=== PATIENT | female | born 1940 | race Caucasian/White ===

== ENCOUNTER 2024-03-05 14:40 | Inpatient (IN) | payer OTHER ==
[~2024-03-05] VITALS: Ht 162.6 cm; Wt 74.0 kg
[2024-03-05 14:54] VITALS: BP_SYST 91; PULSE 84; RESP 20; TEMP 98.1; O2SAT 98
[2024-03-05 16:01] LABS: BASOPHILS % (AUTO) 0.4 % (0.0-2.0); EOSINOPHILS % (AUTO) 0.3 % (0.0-4.0); HEMATOCRIT 42.4 % (36-48); HEMOGLOBIN 14.3 g/dL (12.0-16.0); LYMPHOCYTES # (AUTO) 0.8 K/uL (1.0-5.5); LYMPHOCYTES % (AUTO) 7.8 % (20.5-51.5); MEAN CORPUSCULAR HEMOGLOBIN 28 pg (27-31); MEAN CORPUSCULAR HGB CONC 34 % (32-36); MEAN CORPUSCULAR VOLUME 85 fL (79.0-98.0); MONOCYTES # (AUTO) 0.4 K/uL (0.0-1.0); MONOCYTES % (AUTO) 4.6 % (1.7-9.3); NEUTROPHILS # (AUTO) 8.4 K/uL (1.8-7.7); NEUTROPHILS % (AUTO) 86.9 % (40.0-70.0); PLATELET COUNT (AUTO) 295 K/uL (130-430); RED BLOOD CELL COUNT(AUTO) 5.02 MIL/uL (4.2-6.2); RED CELL DISTRIBUTION WIDTH 20.1 % (9.0-15.0); WHITE BLOOD COUNT (AUTO) 9.7 K/uL (4.8-10.8)
[2024-03-05 16:14] LABS: INR 1.1 (0.8-1.2); PROTHROMBIN TIME 11.7 SECS (9.5-12.5)
[2024-03-05 16:27] LABS: ANION GAP 11 (5-15); CALCIUM 8.2 mg/dL (8.4-11.0); CARBON DIOXIDE 24 mmol/L (23-29); CHLORIDE 94 mmol/L (98-107); CREATININE 1.15 mg/dL (0.55-1.30); GLUCOSE 123 mg/dL (74-106); POTASSIUM 3.9 mmol/L (3.5-5.1); SODIUM SERUM 129 mmol/L (136-145); UREA NITROGEN, BLOOD 24 mg/dL (8-21)
[2024-03-05 16:31] LABS: ALANINE AMINOTRANSFERASE 19 U/L (12-78); ALBUMIN 2.3 g/dL (3.4-4.8); ASPARTATE AMINOTRANSFERASE 32 U/L (10-37); BILIRUBIN,DIRECT 1.1 mg/dL (0.0-0.3); LIPASE 66 U/L (16-77); TOTAL BILIRUBIN 1.9 mg/dL (0.0-1.0)
[2024-03-05] MEDS ORDERED: FOLIC ACID 1 MG, THIAMINE HCL 100 MG, MAGNESIUM SULFATE 1 GM, MVI 10 ML in NACL 0.9% 1,... IV ONE (17:15)
[2024-03-05] MEDS: FOLIC ACID 1 MG, MVI 10 ML in NACL 0.9% 1,000 ML IV ONE (18:15)
[2024-03-05] MEDS: THIAMINE HCL 100 MG, MAGNESIUM SULFATE 1 GM in NS 100 ML IV ONE (18:16)
[2024-03-05] MEDS: PIPERACILLIN/TAZO 3.375 GM in NS 50 ML IV ONE (18:16)
[2024-03-05] MEDS ORDERED: FURO-150 PO (18:21)
[2024-03-05] MEDS ORDERED: PLE5 PO (18:21)
[2024-03-05] MEDS ORDERED: LOPE2CAP PO (18:21)
[2024-03-05] MEDS ORDERED: OMEP40CA20 PO (18:21)
[2024-03-05] MEDS ORDERED: PROP10TA10 PO (18:21)
[2024-03-05] MEDS ORDERED: FERR-69 PO (18:21)
[2024-03-05] MEDS ORDERED: METF-380 PO (18:21)
[2024-03-05] MEDS: MEROPENEM 1 GM in NS 100 ML IV ONE (19:16)
[2024-03-06] VITALS (9 sets, daily range): BP systolic 106–127; PULSE 76–89; RESP 18–20; TEMP 97.8–98.6; O2SAT 95–100
[2024-03-06] MEDS ORDERED: SPIR25TA6 PO (14:00)
[2024-03-06 14:55] LABS: APPEARANCE,SPUN,BODY FLUID CLEAR (CLEAR); BF APPEARANCE UNSPUN CLEAR (CLEAR); BODY FLUID SOURCE/ TYPE ASCITES; SOURCE/TYPE ,BODY FLUID PARACENTESIS
[2024-03-06 14:56] LABS: BODY FLUID COLOR YELLOW (LT YELLOW); BODY FLUID TOTAL VOLUME 6400 mL
[2024-03-06 14:58] LABS: LYMPHOCYTES, BODY FLUID 42 %; MONOCYTES,BODY FLUID 10 %; NEUTROPHIL, BODY FLUID 48 %; RBC, BODY FLUID 10 /uL; WBC, BODY FLUID 41 /uL
[2024-03-06 21:18] LABS: BODY FLUID GLUCOSE 86 mg/dL
== END 2024-03-06 19:35 | disposition home or self-care (01) | DRG 433 ==
LOC: SED 14:40 → SMU 19:34
PROVIDERS: ADMIT Specialist; ATTEND Specialist
PROC: 0W9G3ZZ Drainage of Peritoneal Cavity, Percutaneous Approach (ICD-10-PCS; principal; 2024-03-05)
DX: K74.60 Unspecified cirrhosis of liver (principal); E44.0 Moderate protein-calorie malnutrition; E87.1 Hypo-osmolality and hyponatremia; R18.8 Other ascites; E11.9 Type 2 diabetes mellitus without complications; K21.9 Gastro-esophageal reflux disease without esophagitis; I10 Essential (primary) hypertension; Z68.28 Body mass index [BMI] 28.0-28.9, adult
CPT/HCPCS: 36415; 49083; 80048; 80076; 82947; 83605; 83690; 84157; 85025; 85610; 85730; 87040; 87070; 89051; 89060; 99285; J0696; J2185; J3411; J3475; J3490; J7030; J7060